=== PATIENT | male | born 1975 | race Caucasian/White ===

== ENCOUNTER 2017-11-08 12:17 | Emergency (ER) | payer OTHER, SELFPAY ==
--- NOTE | 2017-11-08 13:03 | PC.NURSE ---
Pt requesting to remove C-collar. Explained risks of removing collar prior to C-spine clearance. Pt elects to remove. Provider notified.
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
[2017-11-08 13:14] VITALS: BP 148/90; PULSE 68; RESP 13; TEMP 36.7; O2SAT 98
[2017-11-08 15:01] VITALS: BP 134/98; PULSE 70; RESP 15; O2SAT 98
== END 2017-11-08 15:04 | disposition home or self-care (01) ==
PROVIDERS: Emergency Provider Internal Medicine
DX: S13.4XXA Sprain of ligaments of cervical spine, initial encounter (principal); V49.40XA Driver injured in collision with unspecified motor vehicles in traffic accident, initial encounter
CPT/HCPCS: 99282